=== PATIENT | female | born 1950 | race Caucasian/White ===

== ENCOUNTER 2024-10-25 10:24 | Outpatient (AMB) | payer MEDICARE, MEDICAID, SELFPAY ==
--- NOTE | 2024-10-25 10:22 | A.OFFVIS_ITS ---
Vital Signs 10/25/24 10:27 Height 5 ft 1 in Weight 146 lb 2 oz BMI 27.6 BP 122/60 Blood Pressure Location Rt brachial Position Sitting Pulse 58 Pulse Source Pulse Oximeter Pulse Oximetry (%) 94 Oxygen Delivery Method Room Air Intake Visit Reasons: ENP-esting Head and bilateral hand tremor Intake Note: Patient referred for resting head/hand tremors Lather Apprentice Required: No Accompanied by: Self / Same As Patient Allergies escitalopram [From Lexapro] Allergy (Intermediate, Verified 10/25/24 10:31) Hives Medication List - Last Reconciled 10/25/24 by Nisreen Bautista MD atorvastatin 20 mg PO DAILY HPI Comments Details: 74y/o Right handed female comes for further management of tremors.Tremors started atleast 2 years ago and is worsening. she has both head and chet hand tremors. The tremors are with action and posture and worsens with anxiety. No known fh/o tremors. SHe can write, eating, drink fluids etc . she is independent in all her ADLs. she has neck pain and feels dizzy sometimes Memory is good, gait is good [facility] Medical History (Updated 10/25/24 @ 10:57 by Nisreen Bautista MD) Cervical dystonia Other acquired torsion dystonia Coarse tremors Helicobacter pylori (H. pylori) Hyperlipidemia Surgical History Hx of cholecystectomy Family History Father CVA (cerebrovascular accident due to intracerebral hemorrhage) Social History Alcohol intake: never Patient Tobacco Use Status: Never used Tobacco Physical Exam Vital Signs: Last Vital Signs Pulse 58 10/25/24 10:27 BP 122/60 10/25/24 10:27 Pulse Ox 94 10/25/24 10:27 Oxygen Delivery Method Room Air 10/25/24 10:27 BMI result Body Mass Index 27.6 Const Orientation/consciousness: patient oriented x3 HEENT Other: no no head tremors mild restricted range of motion Eyes Pupils: Equal, round and reactive pupils present Neuro Other: mild no no head tremors, mild action and postural tremors chet UE Normal tone General: patient oriented x3, gait normal, tone normal, moves all extremities and no focal motor deficits Cranial nerves: Yes Facial sensation intact/muscles of mastication intact, Yes Equal, round and reactive pupils present, Yes Bilaterally intact EOM present, Yes Nystagmus not present, Yes Normal facial strength present, Yes Midline tongue present, Yes Symmetric palate elevation present, Yes Ability to bilaterally rotate head present and Yes Ability to bilaterally elevate shoulders present Cognition (Neuro): normal cognition Gait exam (Neuro): Normal gait present Motor exam (neuro): 5/5 motor strength present throughout and Normal motor m uscle tone present throughout Deep tendon reflexes (DTR's): Right triceps reflex intensity grade: 1+, Left triceps reflex intensity grade: 1+, Rt Biceps (C5, C6): 1+, Left biceps reflex intensity grade: 1+, Right brachioradialis reflex intensity grade: 1+, Left brachioradialis reflex intensity grade: 1+, Right patellar reflex intensity grade: 2+ and Left patellar reflex intensity grade: 2+ Coordination: [id number] test normal Assessment & Plan Assessment & Plan (1) Coarse tremors: Comment: head tremors and hand tremors- likely essential tremors , ? cervical dystonia Code(s): G25.2 - Other specified forms of tremor Category: Medical Plan No evidence of Parkinson's on todays exam . The tremors are mild and does not affect her ADLs. will monitor her cliniclaly PT for neck Orders: Orders PT Evaluation and Treatment Today G24.3 - Spasmodic torticollis Coding Level of Care Code New Pt Level 4 (97610) Diagnoses Coarse tremors G25.2
[2024-10-25 10:27] VITALS: BP 122/60; PULSE 58; O2SAT 94; BMI 27.6
--- OUTSIDE RECORDS SUMMARY | 2024-10-25 11:35 | XMS_ITS | Patient Health Record ---
Author Organization [facility] Address [address] [place] [address] Support Name Relationship Address Phone LARA, CHELY Guarantor Unknown Reason For Referral No Information Medications Medication SIG (Take, Route, Fr equency, Duration) Notes Start Date End Date Status Lotrisone cream 45 GM External twice daily for 5 Anton-MJ 1 06/05/2012 Active Problems Problem Type SNOMED Code ICD Code Onset Dates Problem Status W/U Status Risk Notes Problem Menopausal symptom (55823754) Symptomatic menopausal or female climacteric states (627.2) Active confirmed Major Problem Gynecological examination normal (585074047266321) Routine gynecological examination (V72.31) Active confirmed Major Problem Screening for malignant neoplasm of colon (332379951) Special screening for malignant neoplasms, colon (V76.51) Active confirmed Major Plan Of Treatment No Information Insurance Providers Payer Name Payer Address Payer Phone Subscriber Number Group Number Insured Name Patient Relationship to Insured Coverage Start Date Coverage End Date [facility] [address] [address] [place] [address] [id number] CHELY LARA Self - patient is the insured
== END 2024-10-25 10:59 | disposition home or self-care (01) ==
LOC: HO.HSMS 10:25
PROVIDERS: PCP Internal Medicine; Visit Provider Psychiatry & Neurology Neurology
DX: G25.2 Other specified forms of tremor (principal)
CPT/HCPCS: 99204

== ENCOUNTER → 2024-10-25 10:24 | Outpatient (BNVA) | payer MEDICARE, MEDICAID, SELFPAY | PROVIDERS: PCP Internal Medicine; Visit Provider Psychiatry & Neurology Neurology | DX: G25.2 Other specified forms of tremor (principal) | CPT/HCPCS: 99202 ==